=== PATIENT | male | born 1960 ===

== ENCOUNTER 2018-03-24 18:59 | Emergency (ER) | payer MEDICARE ==
[2018-03-24 19:07] VITALS: BP 138/91; PULSE 74; TEMP 98.3; O2SAT 100
--- NOTE | 2018-03-24 19:39 | C.PDOC ---
History Of Present Illness 57 year old male, with PMHx of chronic pain, presenting to the ED complaining of right sided bodyaches on neck, shoulder, and legs. He has multiple previous visits to the ED for similar symptoms. He was previously seen by Dr. Leblanc and was prescribed Trileptal and Neurontin, but patient reports no significant relief from medications. Patient denies any recent injury, trauma, numbness, tingling, or weakness. Time Seen by Provider: 03/24/18 19:27 Chief Complaint (Nursing): Back Pain History Per: Patient History/Exam Limitations: no limitations Onset/Duration Of Symptoms: Days Current Symptoms Are (Timing): Still Present Past Medical History Reviewed: Historical Data, Nursing Documentation, Vital Signs Vital Signs: Last Vital Signs Temp 98.3 F 03/24/18 19:05 Pulse 74 03/24/18 19:05 Resp 20 03/24/18 21:24 BP 138/91 H 03/24/18 19:05 Pulse Ox 100 03/24/18 21:55 - Medical History PMH: Chronic Pain Surgical History: No Surg Hx Family History: States: No Known Family Hx - Social History Hx Alcohol Use: Yes Hx Substance Use: No Review Of Systems Except As Marked, All Systems Reviewed And Found Negative. Musculoskeletal: Positive for: Neck Pain (Right sided), Shoulder Pain (Right Sided ), Leg Pain (Right sided) Neurological: Negative for: Weakness, Numbness Physical Exam - Physical Exam Appears: Non-toxic, No Acute Distress Skin: Normal Color, Warm, Dry Head: Atraumatic, Normacephalic Eye(s): bilateral: Normal Inspection Neck: Normal ROM, Other (Tenderness to right lateral neck ) Chest: Symmetrical Cardiovascular: Rhythm Regular Respiratory: Normal Breath Sounds Extremity: Normal ROM, Other (Diffused right arm and legs ) Extremity: Bilateral: Atraumatic Neurological/Psych: Oriented x3, Normal Speech, Other (No neural deficits ) Gait: Other (Ambulatory) ED Course And Treatment O2 Sat by Pulse Oximetry: 100 (RA) Pulse Ox Interpretation: Normal Progress Note: Plan: Morphine 6mg IM. Toradol 60mg IM. Lidoderm patch. Patient's records were checked on [facility], and it was found that patient is currently on pain management. The last precription as per [facility] records was Oxycodone 30mg PO, [address] Cruz on 03/06/2018. Upon re- evaluation, patient reports feeling slightly better, but he persists in requesting stronger pain killers. Patient told that he is on pain management already and cannot be given any prescriptions for narcotics. Patient stable and ready for discharge. 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 Return to ED if feel worse Instructions: Chronic Pain (DC) Forms: Cigital ([place]ian) - Clinical Impression Clinical Impression: Chronic musculoskeletal pain - PA / [employer] / Resident Statement MD/DO has reviewed & agrees with the documentation as recorded. - Scribe Statement The provider has reviewed the documentation as recorded by the Scribe (Nora Starkey) All medical record entries made by the Scribe were at my direction and personally dictated by me. I have reviewed the chart and agree that the record accurately reflects my personal performance of the history, physical exam, medical decision making, and the department course for this patient. I have also personally directed, reviewed, and agree with the discharge instructions and disposition.
[2018-03-24] MEDS ORDERED: Lidocaine 5% Patch TD STA (19:57)
[2018-03-24] MEDS ORDERED: Morphine 4 MG/ML VIAL ONE (20:05)
[2018-03-24] MEDS ORDERED: Lidocaine 5% Patch TD ONE (20:08)
[2018-03-24 21:24] VITALS: RESP 20
== END 2018-03-24 21:24 | disposition home or self-care (01) ==
LOC: C.ER 18:59
DX: M79.1 Myalgia (principal); G89.29 Other chronic pain
CPT/HCPCS: 96372; 99283; J1885; J2270

== ENCOUNTER 2018-12-05 13:16 | Outpatient (CLI) | payer MEDICARE, OTHER | END 2018-12-05 13:17 | disposition home or self-care (01) | LOC: C.RADH 13:16 | DX: S22.41XA Multiple fractures of ribs, right side, initial encounter for closed fracture (principal); M19.90 Unspecified osteoarthritis, unspecified site ==